=== PATIENT | male | born 1935 | race Caucasian/White ===

== ENCOUNTER 2021-06-19 13:09 | Emergency (ER) | payer OTHER | END 2021-06-19 16:25 | disposition home or self-care (01) | LOC: FER 13:09 | DX: J84.10 Pulmonary fibrosis, unspecified (principal); T50.905A Adverse effect of unspecified drugs, medicaments and biological substances, initial encounter; F03.90 Unspecified dementia, unspecified severity, without behavioral disturbance, psychotic disturbance, mood disturbance, and anxiety; Z20.822 Contact with and (suspected) exposure to COVID-19 ==